=== PATIENT | female | born 1965 | race Caucasian/White ===

== ENCOUNTER → 2016-12-29 | Outpatient (CLI) | payer BC ==
[~2016-12-29] MED LIST: AUGM875T27 PO; COLA50CA3 PO; OXYC-208 PO; OXYC1SOL PO
--- NOTE | 2016-12-29 09:52 | REPMRS ---
Patient History The patient states she had a clinical breast exam in 2016.Family history of unknown cancer in father at age 70, unknown cancer in maternal grandfather at age 65, unknown cancer in mother at age 61, breast cancer in maternal aunt at age 50 or over, unknown cancer in maternal aunt at age 50 or over, unknown cancer in maternal grandmother at age 65, and unknown cancer in maternal uncle at age 50 or over. Took hormonal contraceptives for 3 years. Digital Mammo Screening Bilat: December 29, 2016 - Exam #: [id number] Bilateral CC and MLO view(s) were taken. Technologist: Hailee Foster, Technologist Prior study comparison: December 29, 2015, bilateral digital mammo screening bilat performed at [facility]. December 22, 2014, digital bilateral screening mammo, performed at [facility]. FINDINGS: The breast tissue is heterogeneously dense. This may lower the sensitivity of mammography. There has been no change in the appearance of the mammogram from the prior studies. There is a moderate amount of residual fibroglandular tissue which is fairly symmetric. There is no interval development of dominant mass, areas of architectural distortion, or clustered microcalcification typical of malignancy. ASSESSMENT: BI-RADS/ACR category 1 mammogram. Negative. Recommendation Routine screening mammogram in 1 year (for women over age 40). This mammogram was interpreted with the aid of an FDA-approved computer-aided dectection system. Electronically Signed By: Getachew Langston MD 12/29/16 0952
== END ==
LOC: M RAD 08:23
PROVIDERS: ATTEND Obstetrics & Gynecology
DX: Z12.4 Encounter for screening for malignant neoplasm of cervix (principal)

== ENCOUNTER → 2017-04-07 | Outpatient (CLI) | payer OTHER | LOC: M SLEEP 20:00 | DX: G47.33 Obstructive sleep apnea (adult) (pediatric) (principal) | CPT/HCPCS: 95810 ==

== ENCOUNTER → 2017-04-24 | Outpatient (CLI) | payer OTHER | LOC: M SLEEP 19:41 | DX: G47.33 Obstructive sleep apnea (adult) (pediatric) (principal) | CPT/HCPCS: 95811 ==

== ENCOUNTER 2017-09-25 07:22 | Emergency (ER) | payer OTHER ==
[2017-09-25] MEDS: KETOROLAC 60 MG/2 ML VIAL (J1885) IM (08:42)
[2017-09-25] MEDS: MORPHINE 4 MG/ML 1ML VIAL/SYRINGE (J2270) IM (08:43)
[2017-09-25] MEDS: METHOCARBAMOL 500 MG TAB PO (08:43)
[2017-09-25] MEDS: ONDANSETRON 4 MG ORAL DISINTEGRATING TAB (Q0162 PER 1MG) PO (08:43)
== END 2017-09-25 09:11 | disposition home or self-care (01) ==
LOC: M ED 07:22
DX: M54.42 Lumbago with sciatica, left side (principal); M51.36 Other intervertebral disc degeneration, lumbar region; M51.37 Other intervertebral disc degeneration, lumbosacral region; M47.816 Spondylosis without myelopathy or radiculopathy, lumbar region; M47.817 Spondylosis without myelopathy or radiculopathy, lumbosacral region; E66.9 Obesity, unspecified; Z91.048 Other nonmedicinal substance allergy status; Z88.5 Allergy status to narcotic agent
CPT/HCPCS: J2270

== ENCOUNTER → 2018-01-02 | Outpatient (CLI) | payer OTHER | LOC: M RAD 08:13 | DX: Z12.31 Encounter for screening mammogram for malignant neoplasm of breast (principal); Z92.0 Personal history of contraception; Z80.9 Family history of malignant neoplasm, unspecified | CPT/HCPCS: 77067 ==

== ENCOUNTER → 2018-08-29 | Outpatient (CLI) | payer OTHER ==
[~2018-08-29] MED LIST changes: +HYDR-3715 PO; +IBUP-1114 PO; +IBUP80TA PO; +ROBA500T PO
--- NOTE | 2018-08-30 07:38 | REP ---
REASON FOR EXAM: Acute shoulder pain. No history of trauma. There is mild AC joint DJD with hypertrophic change and osteophytosis. The glenohumeral relationship is within normal limits. Subtle calcifications are seen lateral to the greater humeral tuberosity. There is no acute fracture, dislocation, or subluxation. IMPRESSION: 1. AC joint DJD. 2. Subtle soft tissue calcifications as described above suggestive of chronic calcific supraspinatus tendonitis. Certainly, chronic subdeltoid bursitis cannot be ruled out. Electronically Signed by David Merlos DO 08/30/2018 10:19 A
== END ==
LOC: M LRY 17:58
PROVIDERS: ATTEND Nurse Practitioner Family
DX: M19.011 Primary osteoarthritis, right shoulder (principal); M25.511 Pain in right shoulder

== ENCOUNTER → 2019-01-15 | Outpatient (CLI) | payer OTHER ==
--- NOTE | 2019-01-15 09:10 | REPMRS ---
Patient History The patient states she had a clinical breast exam in 2018. Family history of unknown cancer at age 61 in mother, unknown cancer at age 70 in father, unknown cancer at age 50 or over in maternal aunt, unknown cancer at age 50 or over in maternal uncle, unknown cancer at age 65 in maternal grandfather, unknown cancer at age 65 in maternal grandmother, breast cancer at age 50 or over in maternal aunt. Took hormonal contraceptives for 3 years. 3D TOMOSYNTHESIS WAS PERFORMED. The [facility] lifetime risk for breast cancer is 11.3%. Digital Mammo Screening Bilat: January 15, 2019 - Exam #: [id number] Bilateral CC and MLO view(s) were taken. Technologist: Hailee Foster, Grantologist Prior study comparison: January 02, 2018, bilateral digital mammo screening bilat performed at [facility]. December 29, 2016, bilateral digital mammo screening bilat performed at [facility]. FINDINGS: The breast tissue is heterogeneously dense. This may lower the sensitivity of mammography. There has been no change in the appearance of the mammogram from the prior studies. There is a moderate amount of residual fibroglandular tissue which is fairly symmetric. There is no interval development of dominant mass, areas of architectural distortion, or clustered microcalcification typical of malignancy. Assessment: BI-RADS/ACR category 1 mammogram. Negative Mammogram. Recommendation Routine screening mammogram in 1 year (for women over age 40). This mammogram was interpreted with the aid of an FDA-approved computer-aided dectection system. Electronically Signed By: Getachew Langston MD 01/15/19 0906
== END ==
LOC: M RAD 07:01
PROVIDERS: ATTEND Obstetrics & Gynecology
DX: Z12.31 Encounter for screening mammogram for malignant neoplasm of breast (principal)

== ENCOUNTER → 2019-07-15 | Outpatient (CLI) | payer OTHER ==
--- NOTE | 2019-07-17 09:10 | DEXA ---
AP SPINE L1 - L4 1.322 1.2 2.1 LT FEMUR TOTAL 1.148 1.1 1.8 LT NECK 0.954 -0.6 0.5 RT FEMUR TOTAL 1.152 1.1 1.9 RT NECK 1.007 -0.2 0.8 TOTAL BODY TOTAL OTHER COMMENTS: Normal bone densitometry of the spine and hips. The increased density of the spine does represent a significant change. The decreased density of the left hip does represent a significant change. The decreased density of the right hip does represent a significant change. The density of the spine is increased 8.5% since the initial exam on 04/01/2002. The density of the left hip has decreased 19.6% since the initial exam on 09/24/2001. The density of the left hip has decreased 16.9% since the most recent exam on 04/01/2002. The density of the right hip has decreased 12.2% since the initial exam on 09/24/2001. The density of the right hip has decreased 7.4% since most recent exam on 04/01/2002. FOLLOW-UP: Recommendation for the next bone density exam: 5 years. LUIS ALBERTOD
== END ==
LOC: M WHC 07:53
PROVIDERS: ATTEND Nurse Practitioner Adult Health
DX: M81.8 Other osteoporosis without current pathological fracture (principal)

== ENCOUNTER → 2019-08-27 | Outpatient (CLI) | payer OTHER ==
--- NOTE | 2019-08-27 12:49 | REP ---
ULTRASOUND RIGHT FOREARM SOFT TISSUES: Real-time sonographic evaluation of the right forearm soft tissues performed at the site of three reported palpable lumps. At these locations, there is no discrete cystic or solid nodules seen sonographically. Further evaluation may be made with MRI with and without contrast.
== END ==
LOC: M PLAIMG 10:00
PROVIDERS: ATTEND Surgery
DX: D17.21 Benign lipomatous neoplasm of skin and subcutaneous tissue of right arm (principal)

== ENCOUNTER → 2020-02-19 | Outpatient (CLI) | payer OTHER ==
--- NOTE | 2020-02-19 09:30 | REPMRS ---
Patient History The patient states she had a clinical breast exam in 03/05 Family history of unknown cancer at age 61 in mother, unknown cancer at age 70 in father, unknown cancer at age 50 or over in maternal aunt, unknown cancer at age 50 or over in maternal uncle, unknown cancer at age 65 in maternal grandfather, unknown cancer at age 65 in maternal grandmother, breast cancer at age 50 or over in maternal aunt. Took hormonal contraceptives for 3 years. 3D TOMOSYNTHESIS WAS PERFORMED. The [facility] lifetime risk for breast cancer is 10.8%. Volpara breast density a. Digital Woman Screen Mammo: February 19, 2020 - Exam #: [id number] Bilateral CC and MLO view(s) were taken. Technologist: Dina Garay, Technologist Prior study comparison: January 15, 2019, bilateral digital mammo screening bilat, performed at [facility]. January 02, 2018, bilateral digital mammo screening bilat, performed at [facility]. FINDINGS: There are scattered fibroglandular densities. There has been no change in the appearance of the mammogram from the prior studies. There is a mild amount of residual fibroglandular tissue which is fairly symmetric. There is no interval development of dominant mass, architectural distortion, or clustered microcalcification suggestive of malignancy. Assessment: BI-RADS/ACR category 1 mammogram. Negative Mammogram. Recommendation Routine screening mammogram in 1 year (for women over age 40). This mammogram was interpreted with the aid of an FDA-approved computer-aided dectection system. Electronically Signed By: Getachew Langston MD 02/19/20 [id number]
== END ==
LOC: M WHC 08:30
PROVIDERS: ATTEND Obstetrics & Gynecology
DX: Z12.31 Encounter for screening mammogram for malignant neoplasm of breast (principal); Z80.9 Family history of malignant neoplasm, unspecified; Z92.0 Personal history of contraception

== ENCOUNTER 2020-07-21 22:39 | Emergency (ER) | payer OTHER ==
[~2020-07-21] VITALS: Ht 172.7 cm; Wt 144.4 kg
[2020-07-22] MEDS ORDERED: diphenhydrAMINE 50MG/ML VIAL (J1200) IV ONE (06:25)
[2020-07-22] MEDS ORDERED: METOCLOPRAMIDE INJ 10MG/2ML VIAL (J2765 PER 1) IV ONE (06:25)
[2020-07-22] MEDS ORDERED: NS 1,000 ML IV ONE (06:25)
[2020-07-22] MEDS ORDERED: KETOROLAC 30 MG/ML 1ML VIAL IV ONE (07:00)
[2020-07-22] MEDS ORDERED: EXCETAB33 PO (07:08)
[2020-07-22] MEDS ORDERED: dexameTHASONE 4 MG/ML 1ML VIAL (J1100 PER 1MG) IV ONE (08:20)
[2020-07-22] MEDS ORDERED: ACETAMINOPHEN 500 MG TAB PO ONE (08:20)
[2020-07-22 10:58] VITALS: BP 146/88
== END 2020-07-22 10:59 | disposition home or self-care (01) ==
LOC: M ED 22:39
DX: G43.909 Migraine, unspecified, not intractable, without status migrainosus (principal); R11.2 Nausea with vomiting, unspecified; R73.03 Prediabetes; G47.33 Obstructive sleep apnea (adult) (pediatric); E66.9 Obesity, unspecified; Z88.6 Allergy status to analgesic agent; Z79.899 Other long term (current) drug therapy
CPT/HCPCS: 96361; 96374; 96375; 99284; J1100; J1200; J1885; J2765

== ENCOUNTER 2020-07-26 14:07 | Emergency (ER) | payer OTHER ==
[~2020-07-26] VITALS: Ht 172.7 cm; Wt 143.7 kg
[~2020-07-26 14:07] MED LIST changes: +EXCETAB33 PO
[2020-07-26] MEDS ORDERED: diphenhydrAMINE 50MG/ML VIAL (J1200) IV STA (16:59)
[2020-07-26] MEDS ORDERED: NS 1,000 ML IV ONE (17:00)
[2020-07-26] MEDS ORDERED: KETOROLAC 30 MG/ML 1ML VIAL IV ONE (17:00)
[2020-07-26] MEDS ORDERED: METOCLOPRAMIDE INJ 10MG/2ML VIAL (J2765 PER 1) IV ONE (17:00)
[2020-07-26] MEDS ORDERED: dexameTHASONE 20MG/5ML VIAL (J1100 PER 1MG) IV ONE (17:00)
[2020-07-26] MEDS ORDERED: MAG SULF 1GM/100ML (MAG RUN) 1 GM in IV 1 EA IV ONE (17:00)
[2020-07-26 17:30] LABS: BASO % 0.4 % (0.0-1.0); EOS # 0.1 10^3/uL (0.0-0.5); EOS % 1.1 % (0.0-3.0); HEMATOCRIT 44.1 % (36.0-47.0); HEMOGLOBIN 14.1 g/dl (12.0-15.5); LYMPH # 1.5 10^3/uL (1.5-5.0); LYMPH % 13.6 % (24.0-44.0); MEAN CORPUSCULAR HEMOGLOBIN 26.5 pg (27.0-33.0); MEAN CORPUSCULAR VOLUME 82.7 fl (80.0-96.0); MONO # 0.8 10^3/uL (0.0-0.8); MONO % 7.3 % (2.0-8.0); NEUTROPHILS # 8.3 10^3/uL (1.5-8.5); NEUTROPHILS % 77.2 % (36.0-66.0); PLATELET COUNT, AUTOMATED 244 10^3/uL (150-450); RED BLOOD COUNT 5.33 10^6/uL (4.00-5.40); WHITE BLOOD COUNT 10.8 10^3/uL (4.0-10.0)
[2020-07-26 18:05] LABS: ERYTHROCYTE SEDIMENTATION RATE 18 mm/hr (0-30)
--- NOTE | 2020-07-26 18:30 | REPVR ---
PROCEDURE INFORMATION: Exam: CT Head Without Contrast Exam date and time: 07/26/2020 5:48 PM Age: 55 years old Clinical indication: Pain; Headache; Additional info: Recurrent severe NOLASCO, no prior imaging TECHNIQUE: Imaging protocol: Computed tomography of the head without contrast. Radiation optimization: All CT scans at this facility use at least one of these dose optimization techniques: automated exposure control; mA and/or kV adjustment per patient size (includes targeted exams where dose is matched to clinical indication); or iterative reconstruction. COMPARISON: No relevant prior studies available. FINDINGS: Brain: Normal. No hemorrhage. Unremarkable white matter. No mass effect. Cerebral ventricles: No ventriculomegaly. Paranasal sinuses: Minimal paranasal sinus disease. Mastoid air cells: Visualized mastoid air cells are well aerated. Bones/joints: Hyperostosis frontalis interna. Soft tissues: Unremarkable. IMPRESSION: No acute intracranial abnormality. Electronically signed by: Santos Zhang On 07/26/2020 18:30:06 PM
[2020-07-26] MEDS ORDERED: VALPROATE SOD INJ 500 MG in D5W 50 ML IV ONE (20:10)
[2020-07-26] MEDS ORDERED: AMITRIPTYLINE 25MG TABLET PO STA (22:21)
[2020-07-26 22:32] VITALS: BP 153/70
[2020-07-26] MEDS ORDERED: AMIT25TA17 PO (22:32)
[2020-07-26] MEDS ORDERED: PILL CUTTER 1 EACH XX ONE (22:42)
== END 2020-07-26 22:47 | disposition home or self-care (01) ==
LOC: M ED 14:07
DX: R51.9 Headache, unspecified (principal); Z88.5 Allergy status to narcotic agent; Z91.048 Other nonmedicinal substance allergy status; J30.89 Other allergic rhinitis
CPT/HCPCS: 70450; 80047; 83735; 85025; 85652; 96365; 96366; 96368; 96375; 99284; J1100; J1200; J1885; J2765; J3475

== ENCOUNTER → 2020-12-16 | Outpatient (CLI) | payer OTHER ==
[~2020-12-16] MED LIST changes: +AMIT25TA17 PO
--- NOTE | 2020-12-16 09:33 | REP ---
INDICATION: RT KNEE OSTEOARTHRITIS. COMPARISON: None. TECHNIQUE: Axial soft tissue bone windows with coronal and sagittal reconstructions provided. FINDINGS: There is evidence of tricompartment osteoarthritis with marginal osteophytes on the tibial spines and both medial and lateral joint margins for tibial plateau and femoral condyles. Also prominent spur along the medial aspect of the medial femoral condyle in the intercondylar notch is prominent subchondral cyst posteriorly in the medial tibial plateau just peripheral to the intercondylar notch a near PCL insertion. Some bone island in the tibial plateau a metaphysis peripherally and medially. There is marked narrowing of the patellofemoral joint laterally mild medially with a few mm of lateral patellar subluxation subchondral cysts in the patella and a suprapatellar joint effusion with fluid tracking into the bursal recess is adjacent to the mediolateral femoral condyles. There is no patellar fracture. I see no loose body in the knee joint. Lateral femoral condyle shows contour depression and subchondral sclerosis of the centrally. There are few subchondral cysts anteriorly in the lateral femoral condyle. Quadriceps and patellar tendons are grossly intact. There is no displaced fracture see no popliteal fossa cyst. IMPRESSION: 1. Tricompartment osteoarthritis, most severe in the patellofemoral joint with marked narrowing of the joint from chondromalacia and [id number] appearance of the lateral facet along with subchondral sclerosis and cystic changes in the patellar articular surface. Prominent osteophytes at all joint margins. Suprapatellar effusion present. Medial and lateral joint compartments do not show significant joint space narrowing but do have marginal osteophytes, fairly prominent. 2. Chronic changes lateral femoral condyle with cortical contour deformity and subchondral cysts centrally and anteriorly. 3. No linear fracture lines, avulsion, loose body or other acute finding. <Electronically signed by Poncho Mendieta > 12/16/20 [id number]
== END ==
LOC: M RAD 08:23
PROVIDERS: ATTEND Physician Assistant
DX: M17.11 Unilateral primary osteoarthritis, right knee (principal)

== ENCOUNTER → 2020-12-29 | Outpatient (CLI) | payer OTHER ==
--- NOTE | 2020-12-29 08:46 | REP ---
INDICATION: ELEVATED LFT'S COMPARISON: 11/10/2012 TECHNIQUE: Real time mora scale ultrasound examination using curved array transducer. FINDINGS: Liver is incompletely evaluated due to body habitus and technical factors although fatty infiltration is suggested. Pancreas is incompletely evaluated due to interposed bowel gas and above-mentioned technical factors. The gallbladder is not visualized. Common bile duct is not identified but no obvious biliary ductal dilatation is appreciated. Right kidney is normal in reniform shape without hydronephrosis and measures 10.3 x 4.7 x 4.2 cm. IMPRESSION: Significantly limited examination due to body habitus and associated technical factors. If the patient remains symptomatic consider pre and postcontrast CT of the abdomen for further investigation. <Electronically signed by Lai Banegas > 12/29/20 [id number]
== END ==
LOC: M RAD 07:55
PROVIDERS: ATTEND Nurse Practitioner Family
DX: R74.01 Elevation of levels of liver transaminase levels (principal); R93.9 Diagnostic imaging inconclusive due to excess body fat of patient

== ENCOUNTER → 2021-01-01 | Outpatient (CLI) | payer OTHER ==
[~2021-01-01] MED LIST changes: +GASTROGRAFIN SOLUTION 30ML (Q9963) As Ordered ONE; +ISOVUE-370 76% 100ML VIAL As Ordered ONE
--- NOTE | 2021-01-02 08:14 | REP ---
INDICATION: ELEVATED LFT'S. COMPARISON: None TECHNIQUE: Axial precontrast, contrast-enhanced and delayed images of the abdomen using oral and 100 cc Isovue 370 intravenous contrast material. Coronal and sagittal reformations obtained. This CT examination was performed using the following dose reduction techniques: Automated exposure control, adjustment of mA and/or kv according to the patient's size, and the use of iterative reconstruction technique. FINDINGS: Liver demonstrates diffuse fatty infiltration without focal hepatic lesion. Spleen, pancreas, and bilateral adrenal glands are normal. Kidneys demonstrate few punctate small 1-2 mm nonobstructing nephroliths along with 2.5 cm simple right renal cyst and 8 mm simple left renal cyst. Visualized enteric system is unremarkable. No ascites. No free air. No intraperitoneal or retroperitoneal adenopathy. Abdominal aorta without aneurysm or dissection. Visualized musculoskeletal structures are intact. IMPRESSION: 1. Hepatosteatosis. 2. Nonacute renal changes. <Electronically signed by Lai Banegas > 01/02/21 [id number]
== END ==
LOC: M RAD 14:08
PROVIDERS: ATTEND Nurse Practitioner Family
DX: R74.01 Elevation of levels of liver transaminase levels (principal); K76.0 Fatty (change of) liver, not elsewhere classified
CPT/HCPCS: 74170; Q9963; Q9967

== ENCOUNTER → 2021-07-29 | Outpatient (CLI) | payer BC ==
[~2021-07-29] MED LIST changes: +EXCETAB32 PO; -EXCETAB33 PO; -GASTROGRAFIN SOLUTION 30ML (Q9963) As Ordered ONE; -ISOVUE-370 76% 100ML VIAL As Ordered ONE
[2021-07-29 13:11] LABS: FERRITIN 329 NG/ML (8-252); IRON (FE) 60 UG/DL (50-170)
[2021-07-29 13:58] LABS: HIV 1&2 SCREEN CENTAUR NEGATIVE (NEGATIVE)
== END ==
LOC: M LAB 11:16
PROVIDERS: ATTEND Nurse Practitioner Family
DX: E11.65 Type 2 diabetes mellitus with hyperglycemia (principal); R74.01 Elevation of levels of liver transaminase levels

== ENCOUNTER → 2021-09-21 | Outpatient (CLI) | payer BC ==
[2021-09-22 20:07] LABS: ANTI DOUBLE STRAND-DNA AB 1 IU/mL (0-9); ANTINUCLEAR ANTIBODIES DIRECT Positive (Negative); LIVER-KIDNEY MICROSOMAL ABY <20.1 Units (0.0-20.0); RNP ANTIBODIES 1.8 AI (0.0-0.9); SJOGREN'S ANTI SS-A <0.2 AI (0.0-0.9); SJOGREN'S ANTI SS-B <0.2 AI (0.0-0.9); SMITH ANTIBODIES <0.2 AI (0.0-0.9); TISSUE TRANSGLUTAMINASE IgA <2 U/mL (0-3)
== END ==
LOC: M LAB 10:54
PROVIDERS: ATTEND Internal Medicine Gastroenterology
DX: K75.81 Nonalcoholic steatohepatitis (NASH) (principal)

== ENCOUNTER → 2021-10-25 | Outpatient (CLI) | payer BC ==
[2021-10-25 12:26] LABS: ALBUMIN 3.6 GM/DL (3.2-5.2); BILIRUBIN,DIRECT 0.3 MG/DL (0.0-0.2); BILIRUBIN,TOTAL 0.6 MG/DL (0.2-1.0); TOTAL PROTEIN 7.2 GM/DL (6.4-8.2)
[2021-10-26 15:11] LABS: LIVER-KIDNEY MICROSOMAL ABY <20.1 Units (0.0-20.0)
== END ==
LOC: M LAB 09:52
PROVIDERS: ATTEND Internal Medicine Gastroenterology
DX: R94.5 Abnormal results of liver function studies (principal)

== ENCOUNTER → 2022-03-25 | Outpatient (REF) | payer BC | LOC: M SFHCRHEU 10:21 | PROVIDERS: ATTEND Internal Medicine | DX: R04.0 Epistaxis (principal) ==

== ENCOUNTER → 2022-04-22 | Outpatient (REF) | payer BC ==
[2022-04-22 12:12] LABS: POTASSIUM SERUM 3.9 MMOL/L (3.5-5.1)
== END ==
LOC: M LAB REF 11:56
PROVIDERS: ATTEND Internal Medicine Nephrology
DX: N18.2 Chronic kidney disease, stage 2 (mild) (principal)

== ENCOUNTER → 2022-05-25 | Outpatient (CLI) | payer BC | LOC: M WHC 12:59 | PROVIDERS: ATTEND Obstetrics & Gynecology | DX: Z12.31 Encounter for screening mammogram for malignant neoplasm of breast (principal) ==

== ENCOUNTER → 2023-02-22 | Outpatient (CLI) | payer BC ==
[~2023-02-22] MED LIST changes: -AMIT25TA17 PO; +AMIT25TA19 PO
[2023-02-22 11:48] LABS: HEMATOCRIT 40.6 % (36.0-47.0); HEMOGLOBIN 13.2 g/dl (12.0-15.5); MEAN CORPUSCULAR HEMOGLOBIN 26.9 pg (27.0-33.0); MEAN CORPUSCULAR HGB CONC 32.5 g/dl (32.0-36.5); MEAN CORPUSCULAR VOLUME 82.9 fl (80.0-96.0); PLATELET COUNT, AUTOMATED 238 10^3/uL (150-450); WHITE BLOOD COUNT 7.1 10^3/uL (4.0-10.0)
[2023-02-22 12:15] LABS: CREATININE, URINE 134.2 MG/DL; CREATININE,RANDOM URINE 134.2 MG/DL; MAU/CREAT RATIO 4.4 MCG/MG (0.0-30.0)
[2023-02-22 12:16] LABS: ALBUMIN 3.6 G/DL (3.2-5.2); BILIRUBIN,TOTAL 0.5 MG/DL (0.3-1.2); CALCIUM LEVEL 9.3 MG/DL (8.3-10.6); CHOLESTEROL RISK RATIO 3.36 (<5); CREATININE FOR GFR 1.01 MG/DL (0.55-1.30); GLOMERULAR FILTRATION RATE 59.5 (>45); HDL CHOLESTEROL 56.4 MG/DL (>40); LDL CHOLESTEROL 105.2 MG/DL (<100); NON-HDL-C 133.6 MG/DL; POTASSIUM SERUM 4.1 MMOL/L (3.5-5.1); TOTAL PROTEIN 6.9 G/DL (5.7-8.2)
[2023-02-22 12:18] LABS: FERRITIN 80.6 NG/ML (7.3-270.7)
[2023-02-22 12:22] LABS: HEMOGLOBIN A1c 6.4 % (4.0-6.0)
== END ==
LOC: M LAB 11:09
PROVIDERS: ATTEND Registered Nurse
DX: Z79.899 Other long term (current) drug therapy (principal); E11.65 Type 2 diabetes mellitus with hyperglycemia; R74.01 Elevation of levels of liver transaminase levels; Z13.220 Encounter for screening for lipoid disorders; E83.110 Hereditary hemochromatosis; R16.0 Hepatomegaly, not elsewhere classified

== ENCOUNTER → 2023-05-29 | Outpatient (CLI) | payer BC | LOC: M WHC 12:56 | PROVIDERS: ATTEND Obstetrics & Gynecology | DX: Z12.31 Encounter for screening mammogram for malignant neoplasm of breast (principal) ==

== ENCOUNTER → 2023-06-03 | Outpatient (CLI) | payer BC ==
[2023-06-03 09:59] LABS: HEMATOCRIT 37.9 % (36.0-47.0); HEMOGLOBIN 12.5 g/dl (12.0-15.5); MEAN CORPUSCULAR HEMOGLOBIN 27.3 pg (27.0-33.0); MEAN CORPUSCULAR VOLUME 82.8 fl (80.0-96.0); PLATELET COUNT, AUTOMATED 209 10^3/uL (150-450); RED BLOOD COUNT 4.58 10^6/uL (4.00-5.40); WHITE BLOOD COUNT 7.2 10^3/uL (4.0-10.0)
[2023-06-03 10:18] LABS: HEMOGLOBIN A1c 7.1 % (4.0-6.0)
[2023-06-03 10:28] LABS: ALBUMIN 3.3 G/DL (3.2-5.2); ALKALINE PHOSPHATASE 120 U/L (46-116); ALT/SGPT 52 U/L (7.0-40); AST/SGOT 34 U/L (<34); BILIRUBIN,TOTAL 0.4 MG/DL (0.3-1.2); BLOOD UREA NITROGEN 16 MG/DL (9-23); CALCIUM LEVEL 9.1 MG/DL (8.3-10.6); CARBON DIOXIDE LEVEL 26 MMOL/L (20-31); CHLORIDE LEVEL 102 MMOL/L (98-107); CHOLESTEROL LEVEL 112 MG/DL (<200); CHOLESTEROL RISK RATIO 2.37 (<5); CREATININE FOR GFR 0.85 MG/DL (0.55-1.30); GLOMERULAR FILTRATION RATE > 60.0 (>45); GLUCOSE, FASTING 172 MG/DL (74-106); HDL CHOLESTEROL 47.2 MG/DL (>40); LDL CHOLESTEROL 45.8 MG/DL (<100); NON-HDL-C 64.8 MG/DL; POTASSIUM SERUM 4.3 MMOL/L (3.5-5.1); SODIUM LEVEL 137 MMOL/L (136-145); TOTAL PROTEIN 6.6 G/DL (5.7-8.2); TRIGLYCERIDES LEVEL 95 MG/DL (<150)
== END ==
LOC: M LAB 09:04
PROVIDERS: ATTEND Registered Nurse
DX: E11.65 Type 2 diabetes mellitus with hyperglycemia (principal); Z79.899 Other long term (current) drug therapy; E78.00 Pure hypercholesterolemia, unspecified; R74.01 Elevation of levels of liver transaminase levels

== ENCOUNTER → 2023-10-25 | Outpatient (CLI) | payer BC ==
[2023-10-25 15:39] LABS: FREE T4 1.41 NG/DL (0.89-1.76); THYROID PEROXIDASE ANTIBODY < 28.0 U/ML (<60.0); THYROID STIMULATING HORMONE 0.008 uIU/ML (0.55-4.78); TOTAL T3 203.3 NG/DL (60.0-181.0)
== END ==
LOC: M LAB 14:29
PROVIDERS: ATTEND Internal Medicine Endocrinology, Diabetes & Metabolism
DX: E05.00 Thyrotoxicosis with diffuse goiter without thyrotoxic crisis or storm (principal)

== ENCOUNTER → 2023-12-26 | Outpatient (CLI) | payer BC | LOC: M RAD 09:49 | PROVIDERS: ATTEND Nurse Practitioner Family | DX: E05.00 Thyrotoxicosis with diffuse goiter without thyrotoxic crisis or storm (principal) | CPT/HCPCS: 78012; A9516 ==

== ENCOUNTER → 2024-02-19 | Outpatient (CLI) | payer BC ==
[2024-02-19 11:47] LABS: FREE T4 1.21 NG/DL (0.89-1.76); THYROID STIMULATING HORMONE 0.059 uIU/ML (0.55-4.78); TOTAL T3 139.2 NG/DL (60.0-181.0)
== END ==
LOC: M LAB 10:31
PROVIDERS: ATTEND Nurse Practitioner Family
DX: E05.00 Thyrotoxicosis with diffuse goiter without thyrotoxic crisis or storm (principal)

== ENCOUNTER → 2024-05-29 | Outpatient (CLI) | payer BC | LOC: M WHC 09:52 | PROVIDERS: ATTEND Obstetrics & Gynecology | DX: Z12.31 Encounter for screening mammogram for malignant neoplasm of breast (principal); R92.313 Mammographic fatty tissue density, bilateral breasts ==

== ENCOUNTER → 2024-06-25 | Outpatient (CLI) | payer BC ==
[2024-06-25 11:49] LABS: HEMOGLOBIN A1c 6.8 % (4.0-6.0)
[2024-06-25 12:23] LABS: ALBUMIN 3.6 G/DL (3.2-5.2); BILIRUBIN,TOTAL 0.4 MG/DL (0.3-1.2); CALCIUM LEVEL 8.9 MG/DL (8.3-10.6); CREATININE FOR GFR 1.02 MG/DL (0.55-1.30); GLOMERULAR FILTRATION RATE 62.6 (>45); POTASSIUM SERUM 4.1 MMOL/L (3.5-5.1); TOTAL PROTEIN 6.8 G/DL (5.7-8.2)
== END ==
LOC: M LAB 10:30
PROVIDERS: ATTEND Registered Nurse
DX: E11.65 Type 2 diabetes mellitus with hyperglycemia (principal)